=== PATIENT | male | born 1970 | race Caucasian/White ===

== ENCOUNTER 2018-04-04 07:57 | Day surgery (SDC) | payer OTHER ==
[2018-04-03 15:07] VITALS: BMI 25.2
--- NOTE | 2018-04-04 08:39 | HP ---
Satellite H - Chief Complaint Chief Complaint: left elbow pain - Past Medical History Allergies/Adverse Reactions: Allergies Allergy/AdvReac Type Severity Reaction Status Date / Time codeine AdvReac Severe Verified 04/03/18 15:08 - Current Medications Current Medications: Home Medications Medication Instructions Recorded Oxycodone HCl/Acetaminophen 1 tab PO Q6H #20 tablet MDD 4 04/04/18 [Percocet 5-325 mg Tablet] Satellite Physical Exam - Physical Examination Vital Signs: Vital Signs Period Temp Pulse Resp BP Sys/Lujan Pulse Ox Last 24 Hr 98.5 F-98.5 F 84-84 20-20 137-137/92-92 97 General Appearance: Well Nourished, Well Developed, Alert & Oriented x3 ENT: Clear Lung: Normal air movement Heart: Regular rate & rhythm Extremities: Other (left elbow- + ttp, decr rom, nvi) Neurological: Intact, Alert, Oriented Satellite Impression/Plan - Impression/Plan Impression: left elbow lateral epicondylitis Operative Procedure: left elbow lateral epicondylectomy, ECRB repair Date to be Performed: 04/04/18
[2018-04-04] MEDS ORDERED: ROPIVACAINE HCL 0.5% 30ML VIAL ONE (09:03)
[2018-04-04] MEDS ORDERED: DEXAMETHASONE SOD PHOSPHATE/PF 10 MG/ML SDV ONE (09:03)
[2018-04-04] MEDS ORDERED: MIDAZOLAM HCL 2 MG/2 ML SINGLE DOSE VIAL ONE ×3 (09:04→09:26)
[2018-04-04] MEDS ORDERED: oxyCODONE HCL 5 MG TABLET PO PRN (09:48)
[2018-04-04] MEDS ORDERED: ONDANSETRON 4 MG/2 ML VIAL IVPUSH PRN (09:48)
[2018-04-04] MEDS ORDERED: LACTATED RINGERS SOLUTION 1,000 ML IV SCH (10:00)
[2018-04-04] MEDS ORDERED: ceFAZolin SODIUM 1 GM VIAL IVPB ONE (10:17)
[2018-04-04] MEDS ORDERED: ceFAZolin SODIUM 1 GM VIAL ONE (10:19)
[2018-04-04] MEDS ORDERED: DEXAMETHASONE SOD PHOSPHATE 4 MG/1 ML VIAL ONE ×2 (10:34→11:06)
[2018-04-04] MEDS ORDERED: LABETALOL HCL 5 MG/1 ML (100MG/20 ML VIAL) ONE (10:41)
[2018-04-04] MEDS ORDERED: PROPOFOL 20 ML ONE (11:04)
--- NOTE | 2018-04-04 11:19 | OP ---
Operative Note - Note: Operative Date: 04/04/18 ([facility]) Pre-Operative Diagnosis: left elbow lateral epicondylitis, ECRB tear Operation: left lateral epicondylectomy, ECRB repair Post-Operative Diagnosis: Same as Pre-op Surgeon: Walt Castellano Engine Manager: Gino Escalante Anesthesia: Local, MAC Specimens Removed: tendon, tenosynovium Estimated Blood Loss (mls): 0 (tourniquet) Operative Report Dictated: Yes
--- NOTE | 2018-04-04 12:32 | OP ---
DATE OF OPERATION: 04/04/2018 PREOPERATIVE DIAGNOSIS: Left elbow recurrence of severe lateral epicondylitis and tear of extensor carpi radialis brevis tendon. POSTOPERATIVE DIAGNOSIS: Left elbow recurrence of severe lateral epicondylitis and tear of extensor carpi radialis brevis tendon. PROCEDURE: Left elbow lateral epicondylectomy and repair of extensor carpi radialis brevis tendon. SURGEON: Fco Acuna MD PACKING MACHINE OPERATOR: Cedrick Bardales MD SECOND BATCH AND FURNACE MANAGER: NIYAH Quiroga ANESTHESIOLOGIST: ANESTHESIA: Left interscalene block and LMA anesthesia. DRAINS: None. COMPLICATIONS: None. SPECIMEN: Chronic inflammatory tissue, left elbow, lateral epicondyle. BLOOD LOSS: None. BLOOD GIVEN: None. FLUID REPLACEMENT: 700 mL. INDICATIONS: This patient is a 47-year-old male with a preoperative diagnosis of recurrence of severe left elbow lateral epicondylitis and the tear of ECRB tendon. After understanding the potential risks, complications, alternatives, and benefits of surgery versus nonsurgical treatment, the patient elected to undergo this procedure. DESCRIPTION OF PROCEDURE: The patient was brought to the operating room, peripheral IV placed and intravenous sedation was given. IV Ancef 1 g was given. Left interscalene block was performed. LMA anesthesia was induced. Left upper extremity was prepped and draped in a sterile fashion, elevated and exsanguinated with an Esmarch bandage. Tourniquet inflated to 250 mmHg. He was in a lazy lateral position. A curvilinear incision was marked out with a marking pen and made with the No. 15 scalpel blade directly over the lateral epicondyle of the left elbow. Subcutaneous hemostasis was achieved with the bipolar cautery. Dissection was done down through the superficial fascia was incised longitudinally exposing the origin of the extensor mass, the ERCB and the lateral epicondyle. I then used a fresh No. 15 scalpel blade to make 4 longitudinal slits within the fibers of the common extensor tendon. Then, in a sequential fashion, I used a No. 15 scalpel blade to cut out chronic inflammatory tissue and a curette to further remove chronic inflammatory tissue and to mildly decorticate the bone of the lateral epicondyle. Of note, in the second most superior slit, there was definite chronic inflammatory synovitis directly on the bone underneath the ECRB. This was all removed and passed off the field as specimen. Once this was done, the area was copiously irrigated and washed out. The tear was also washed out after being cleaned up. An 8.062 K-wire was used to make multiple drill holes within each of the 4 slits. The area was irrigated and washed out again. The tendon was repaired with a 2-0 Vicryl sutures. I then inspected it again. It looked quite good. The area was irrigated and washed out. Closure was done with 4-0 undyed Vicryl in the deep dermal layer, and final skin reapproximation was done with a running subcuticular 4-0 Biosyn stitch. It was then covered with Steri-Strips, 4x4s, Webril, and a 4-inch posterior Ortho-Glass splint was applied and wrapped with 2 Paramjit bandages. The tourniquet was taken down after a total tourniquet time of about 35 minutes. There were no complications during the case. The patient tolerated the procedure quite well and was brought to the ambulatory recovery room in stable condition. CEDRICK BARDALES M.D. [id number]
[2018-04-04 13:36] VITALS: BP 121/86; PULSE 86; TEMP 97.9
--- NOTE | 2018-04-06 19:14 | PATH ---
Surgical Pathology Report Patient Name: PRASAD GANT [facility]. Rec. #: [id number] /Age/Gender: 1970 (Age: 47) / M Account: [id number] Location: [facility] SURGICAL Taken: 04/04/2018 Received: 04/04/2018 Reported: 04/06/2018 Physicians: Walt Castellano M.D. Specimen(s) Received TENDON LEFT ELBOW Clinical History Epicondylitis left elbow Final Diagnosis TENDON, ELBOW, LEFT, LATERAL ELBOW EPICONDYLECTOMY: FRAGMENTS OF FIBROCONNECTIVE TISSUE, CARTILAGE, AND BONE. Electronically Signed Malinda Damon M.D. Gross Description Received in formalin labeled "tendon left elbow," is a 1.5 x 0.9 x 0.2 cm aggregate of aranda soft tissue fragments. The formalin is filtered and the specimen is entirely submitted in one cassette. 04/05/201804/05/2018
== END 2018-04-04 13:10 | disposition home or self-care (01) ==
LOC: JASU-SURG 07:57
PROVIDERS: ATTEND Orthopaedic Surgery
PROC: 0PBD0ZZ Excision of Left Humeral Head, Open Approach (ICD-10-PCS; 2018-04-04)
PROC: 0PBG0ZZ Excision of Left Humeral Shaft, Open Approach (ICD-10-PCS; principal; 2018-04-04 09:00)
DX: M77.12 Lateral epicondylitis, left elbow (principal); S56.512A Strain of other extensor muscle, fascia and tendon at forearm level, left arm, initial encounter; X58.XXXA Exposure to other specified factors, initial encounter; Y93.9 Activity, unspecified; Y92.9 Unspecified place or not applicable; M65.9 Synovitis and tenosynovitis, unspecified
CPT/HCPCS: 88304-TC